=== PATIENT | male | born 2000 | race African-American/Black ===

== ENCOUNTER 2023-11-01 17:28 | Emergency (ER) | payer SELFPAY ==
[~2023-11-01] VITALS: Ht 172.7 cm; Wt 68.0 kg
[2023-11-01 17:33] VITALS: BP 133/81; PULSE 64; TEMP 98.9; O2SAT 100
[2023-11-01 18:23] VITALS: RESP 17
[2023-11-01] MEDS: HYDROCODONE/ACETAMINOPHEN 5/325MG TABLET PO STA (18:23)
[2023-11-01] MEDS: KETOROLAC 30MG/ML VIAL IM STA (18:24)
[2023-11-01] MEDS ORDERED: IBUP-2029 PO (20:00)
[2023-11-01] MEDS ORDERED: HYDR-4001 PO (20:00)
== END 2023-11-01 22:37 | disposition home or self-care (01) ==
LOC: ER 17:28
DX: S82.831A Other fracture of upper and lower end of right fibula, initial encounter for closed fracture (principal); S93.421A Sprain of deltoid ligament of right ankle, initial encounter; X58.XXXA Exposure to other specified factors, initial encounter; Y93.89 Activity, other specified; Y92.89 Other specified places as the place of occurrence of the external cause; Y99.8 Other external cause status
CPT/HCPCS: 73610; 96372; 99283; J1885; Z7610 ×2

== ENCOUNTER 2024-11-13 18:57 | Emergency (ER) | payer OTHER ==
[~2024-11-13] VITALS: Ht 175.3 cm; Wt 80.0 kg
[~2024-11-13 18:57] MED LIST: HYDR-4001 PO; IBUP-2029 PO
[2024-11-13 19:00] VITALS: O2SAT 100
[2024-11-13 19:27] LABS: HEMATOCRIT. 42.8 % (42.0-52.0); HEMOGLOBIN. 14.7 g/dL (14.0-18.0); MEAN PLATELET VOLUME 9.4 fl (7.4-10.4); PLATELET 188 x1000/uL (130-400); RED BLOOD CELL COUNT 5.21 mill/uL (4.7-6.1); RED CELL DISTRIBUTION WIDTH 14.2 % (11.6-14.6)
[2024-11-13 19:42] LABS: CREATININE 1.3 mg/dL (0.6-1.3)
[2024-11-13 19:43] LABS: ETHANOL BLOOD < 10 mg/dL (<10); UREA NITROGEN BLOOD 14 mg/dL (9-23)
[2024-11-13 19:47] LABS: EOSINOPHILS % MANUAL 1.0 % (0.0-5.0); LYMPHOCYTES % MANUAL 22.0 % (20.0-50.0); MONOCYTES % MANUAL 8.0 % (2.0-8.0); NEUTROPHILS % MANUAL 69.0 % (45.0-75.0)
[2024-11-13 19:48] LABS: PLATELET ESTIMATE NORMAL
[2024-11-13 20:42] LABS: CLARITY URINE CLEAR (CLEAR); COLOR URINE YELLOW (YELLOW); GLUCOSE URINE NEGATIVE (NEGATIVE); KETONES URINE TRACE (NEGATIVE); LEUKOCYTE ESTERASE URINE NEGATIVE (NEGATIVE); NITRITE URINE NEGATIVE (NEGATIVE); OCCULT BLOOD URINE TRACE (NEGATIVE); PH URINE 5.5 (4.5-8.0); PROTEIN URINE TRACE (NEGATIVE); SPECIFIC GRAVITY URINE 1.016 (1.005-1.030); UROBILINOGEN URINE 0.2 E.U./dL (0.2-1.0)
[2024-11-13 21:05] LABS: BACTERIA URINE NONE SEEN; RBC URINE 0-2 /hpf (0-2); SQUAMOUS EPITHELIAL CELL URINE RARE /lpf (RARE/1+); WBC URINE NONE SEEN /hpf (0-2)
[2024-11-13 21:22] LABS: *AMPHETAMINES SCREEN URINE NEGATIVE (NEGATIVE); *BARBITURATES SCREEN URINE NEGATIVE (NEGATIVE); *BENZODIAZEPINES SCREEN URINE NEGATIVE (NEGATIVE); *COCAINE SCREEN URINE NEGATIVE (NEGATIVE); CANNABINOID URINE SCREEN PRESUMPTIVE POSITIVE (NEGATIVE); ECSTASY MDMA SCREEN URINE NEGATIVE (NEGATIVE); METHADONE URINE SCREEN NEGATIVE (NEGATIVE); OPIATES URINE SCREEN NEGATIVE (NEGATIVE); PHENCYCLIDINE URINE SCREEN NEGATIVE (NEGATIVE)
[2024-11-13 21:23] VITALS: BP 122/50; PULSE 71; RESP 12; TEMP 37.2; O2SAT 96
== END 2024-11-13 21:36 | disposition home or self-care (01) ==
LOC: ER 18:57
DX: G40.909 Epilepsy, unspecified, not intractable, without status epilepticus (principal); Z79.899 Other long term (current) drug therapy
CPT/HCPCS: 36415; 80048; 80305; 80320; 81003; 82962; 85025; 99284; G0480